=== PATIENT | male | born 1995 | race Caucasian/White ===

== ENCOUNTER → 2024-05-12 | Outpatient (REF) | payer OTHER ==
[2024-05-12 19:16] LABS: HEPATITIS B SURFACE ANTIGEN NEGATIVE (NEGATIVE)
[2024-05-12 19:36] LABS: HEPATITIS B CORE ANTIBODY IGM NEGATIVE (NEGATIVE)
[2024-05-12 19:46] LABS: HEPATITIS C VIRUS ABY INDEX > 11.00 INDEX (<0.8)
[2024-05-15 16:28] LABS: HCV RNA log10 5.94 Log IU/mL (NOT DETECTED)
== END ==
LOC: M LABWUC 17:36
PROVIDERS: ATTEND Internal Medicine Cardiovascular Disease
DX: Z00.8 Encounter for other general examination (principal)

== ENCOUNTER → 2024-05-19 | Outpatient (CLI) | payer OTHER ==
[2024-05-19 11:50] LABS: HEMATOCRIT 41.5 % (42.0-52.0); HEMOGLOBIN 13.3 g/dl (13.5-17.5); MEAN CORPUSCULAR HEMOGLOBIN 28.5 pg (27.0-33.0); MEAN CORPUSCULAR VOLUME 89.1 fl (80.0-96.0); PLATELET COUNT, AUTOMATED 190 10^3/uL (150-450); RED BLOOD COUNT 4.66 10^6/uL (4.30-6.10); WHITE BLOOD COUNT 7.4 10^3/uL (4.0-10.0)
[2024-05-19 12:19] LABS: ALBUMIN 4.2 G/DL (3.2-5.2); ALKALINE PHOSPHATASE 101 U/L (40-129); ALT/SGPT 84 U/L (7.0-40); AST/SGOT 45 U/L (<34); BILIRUBIN,TOTAL 0.3 MG/DL (0.3-1.2); BLOOD UREA NITROGEN 14 MG/DL (9-23); CALCIUM LEVEL 9.2 MG/DL (8.5-10.1); CARBON DIOXIDE LEVEL 31 MMOL/L (20-31); CHLORIDE LEVEL 103 MMOL/L (98-107); CREATININE FOR GFR 0.74 MG/DL (0.70-1.30); GLOMERULAR FILTRATION RATE > 60.0 (>60); GLUCOSE, FASTING 74 MG/DL (60-100); POTASSIUM SERUM 4.2 MMOL/L (3.5-5.1); SODIUM LEVEL 141 MMOL/L (136-145); TOTAL PROTEIN 7.9 G/DL (5.7-8.2)
[2024-05-19 12:33] LABS: HEPATITIS B SURFACE ANTIGEN NEGATIVE (NEGATIVE)
[2024-05-19 12:46] LABS: HIV 1&2 SCREEN NEGATIVE (NEGATIVE)
[2024-05-19 13:09] LABS: HEPATITIS C VIRUS ABY INDEX > 11.00 INDEX (<0.8)
[2024-05-19 13:49] LABS: GC DNA AMPLIFICATION NEGATIVE (NEGATIVE)
== END ==
LOC: M LAB 11:07
PROVIDERS: ATTEND Family Medicine
DX: F11.20 Opioid dependence, uncomplicated (principal)
CPT/HCPCS: 36415; 80053; 85027; 86780; 86803; 87340; 87389; 87522; 87810; 87850; G0480

== ENCOUNTER → 2024-05-20 | Outpatient (CLI) | payer OTHER | LOC: M LAB 09:18 | PROVIDERS: ATTEND Family Medicine | DX: Z51.81 Encounter for therapeutic drug level monitoring (principal) | CPT/HCPCS: 36415; G0480 ==

== ENCOUNTER → 2024-06-19 | Outpatient (CLI) | payer OTHER | LOC: M OUTALCOH 12:28 | PROVIDERS: ATTEND Psychiatry & Neurology Psychiatry | DX: F11.20 Opioid dependence, uncomplicated (principal); Z72.0 Tobacco use ==

== ENCOUNTER → 2024-06-28 | Outpatient (RCR) | payer OTHER | LOC: M OUTALCOH 11:04 | PROVIDERS: ATTEND Psychiatry & Neurology Psychiatry | DX: F11.20 Opioid dependence, uncomplicated (principal); Z72.0 Tobacco use ==

== ENCOUNTER → 2024-10-31 | Outpatient (REF) | payer OTHER ==
[~2024-10-31] MED LIST: FLUTISP; METH10CO3 PO; SOFO1TAB PO
[2024-10-31 18:33] LABS: APPEARANCE, URINE HAZY (CLEAR); BACTERIA, URINE AUTO NEGATIVE (NEGATIVE); BILIRUBIN, URINE AUTO NEGATIVE (NEGATIVE); BLOOD, URINE BLOOD NEGATIVE (NEGATIVE); GLUCOSE, URINE (UA) AUTO NEGATIVE (NEGATIVE); KETONE, URINE AUTO TRACE mg/dL (NEGATIVE); LEUKOCYTE ESTERASE, URINE AUTO TRACE (NEGATIVE); MUCUS, URINE SMALL (NEGATIVE); NITRITE, URINE AUTO NEGATIVE (NEGATIVE); PROTEIN, URINE AUTO 1+ mg/dL (NEGATIVE); RBC, URINE AUTO 1 /HPF (0-3); SPECIFIC GRAVITY URINE AUTO 1.027 (1.002-1.035); SQUAMOUS EPITHELIAL CELL UR AU 0 /HPF (0-6); UROBILINOGEN, URINE AUTO 0.2 mg/dL (0.0-2.0); WBC, URINE AUTO 1 /HPF (0-3)
== END ==
LOC: M LAB REF 17:28
PROVIDERS: ATTEND Physician Assistant Medical
DX: N39.0 Urinary tract infection, site not specified (principal)

== ENCOUNTER 2024-11-09 08:38 | Day surgery (SDC) | payer OTHER ==
[~2024-11-09] VITALS: Ht 167.6 cm; Wt 98.0 kg
[2024-11-09] MEDS: LR 1,000 ML IV SCH (09:17)
[2024-11-09] MEDS ORDERED: dexAMETHasone 4 MG/ML 1 ML VIAL As Ordered ONE (09:44)
[2024-11-09] MEDS ORDERED: ROCURONIUM BROMIDE 50MG/5ML VIAL As Ordered ONE (09:44)
[2024-11-09] MEDS ORDERED: SUGAMMADEX SODIUM 200 MG/2 ML VIAL As Ordered ONE (09:44)
[2024-11-09] MEDS ORDERED: LIDOCAINE 2% 100 MG/5 ML SDV (FOR ANES.) As Ordered ONE (09:44)
[2024-11-09] MEDS ORDERED: MIDAZOLAM INJ 2 MG/2 ML VIAL As Ordered ONE (09:45)
[2024-11-09] MEDS ORDERED: ONDANSETRON 4MG 2ML VIAL As Ordered ONE (09:45)
[2024-11-09] MEDS ORDERED: HYDROmorphone HCL 2 MG/ML 1 ML VIAL As Ordered ONE (09:46)
[2024-11-09] MEDS: dexAMETHasone 4 MG/ML 1 ML VIAL IV ONE (10:01)
[2024-11-09] MEDS ORDERED: ACETAMINOPHEN 1000MG/100ML IV BAG As Ordered ONE (10:19)
[2024-11-09] MEDS: METHYLENE BLUE 0.5% (5 MG/ML) 10 ML AMP As Ordered ONE (10:29)
[2024-11-09] MEDS: SODIUM CHLORIDE 0.9% NASAL GEL 15GM (AYR) As Ordered ONE (10:31)
[2024-11-09] MEDS: EPINEPHrine 1 MG/ML INJ 30 ML MD-VIAL As Ordered ONE (10:31)
[2024-11-09] MEDS: LIDOCAINE W/EPINEPHrine 1% 20 ML VIAL As Ordered ONE (11:01)
[2024-11-09] MEDS ORDERED: HYDROMORPHONE HCL 0.5 MG/0.5 ML SYRINGE IV PRN (11:05)
[2024-11-09] MEDS ORDERED: ONDANSETRON 4MG 2ML VIAL IV PRN (11:05)
[2024-11-09 13:01] VITALS: BP 126/72; TEMP 98.1; O2SAT 97
== END 2024-11-09 13:50 | disposition home or self-care (01) ==
LOC: M SDC 08:38
PROVIDERS: ATTEND Otolaryngology
DX: J34.2 Deviated nasal septum (principal); J34.89 Other specified disorders of nose and nasal sinuses; R09.81 Nasal congestion; F17.210 Nicotine dependence, cigarettes, uncomplicated; F11.20 Opioid dependence, uncomplicated; Z86.19 Personal history of other infectious and parasitic diseases
CPT/HCPCS: 30520; 88300; J0131; J0169; J1100; J1171; J2250; J2405; J3010; Q9968